=== PATIENT | male | born 1985 | race Two or more races ===

== ENCOUNTER 2019-10-13 22:09 | Emergency (ER) | payer SELFPAY ==
[~2019-10-13] VITALS: Ht 180.3 cm; Wt 74.8 kg
--- NOTE | 2019-10-13 22:15 | NUR ---
ED Nurse Note: Pt JAMARI [address] [place] right calf pain. No swelling or redness to area, no visible injuries. Pt denies injury. Pt states he is unsure as to why the pain started or when the pain began. Pt appears altered with delayed speech, disheveled appearance, drooling. VSS no ss of distress noted. Pt states that he uses methamphetamines and marijuana. Awaiting ERMD at bedside
[2019-10-13 22:18] VITALS: BP 126/86
--- NOTE | 2019-10-13 22:18 | NUR ---
ED Nurse Note: ERMD at bedside
--- NOTE | 2019-10-13 22:26 | Emergency Room Report ---
History of Present Illness General Chief Complaint: Pain Source: Patient Present Illness HPI 34-year-old male history of schizophrenia, methamphetamine abuse presents for right calf pain. He states he has had right calf pain since yesterday. He denies any trauma. Denies any fevers. He denies any nausea vomiting. Patient ambulatory on arrival. Patient used methamphetamine yesterday. Allergies: Coded Allergies: No Known Allergies (Unverified , 10/13/19) COVID-19 Screening Contact w/high risk pt: No Recent Travel to affected area: No Experienced COVID-19 symptoms?: No Patient History Reviewed Nursing Documentation: PMH: Agreed; PSxH: Agreed Nursing Documentation-PMH Past Medical History: No Stated History Review of Systems All Other Systems: negative except mentioned in HPI Physical Exam Vital Signs Date Time Temp Pulse Resp B/P (MAP) Pulse Ox O2 Delivery O2 Flow Rate FiO2 10/13/19 22:06 98.4 88 16 126/86 (99) 99 Room Air Sp02 EP Interpretation: reviewed, normal General Appearance: well appearing, no apparent distress Head: normocephalic, atraumatic Eyes: bilateral eye PERRL, bilateral eye EOMI ENT: hearing grossly normal, moist mucus membranes Neck: full range of motion, supple Respiratory: lungs clear, normal breath sounds, no rhonchi, no respiratory distress, no retraction, no wheezing Cardiovascular #1: normal peripheral pulses, regular rate, rhythm, no murmur Gastrointestinal: non tender, soft, non-distended, no guarding Musculoskeletal: other - Right calf mildly tender, no erythema, no swelling, 2 + pulses in bilateral lower extremities Neurologic: alert, oriented x3, no focal defects Skin: normal color, warm/dry Medical Decision Making ER Course Differential diagnosis included but not limited to muscle strain, myalgia, cramps, DVT, less likely ischemia or infectious process. Ultrasound ordered and showed no evidence of DVT. Exam otherwise benign. Patient given ibuprofen in the ER. Patient otherwise nontoxic no acute distress stable for discharge. Given return precautions. Last Vital Signs Date Time Temp Pulse Resp B/P (MAP) Pulse Ox O2 Delivery O2 Flow Rate FiO2 10/13/19 22:18 98.4 88 16 126/86 99 Room Air Status: improved Disposition: HOME, SELF-CARE Condition: Stable Scripts Ibuprofen* (MOTRIN*) 600 Mg Tablet 600 MG ORAL Q6H PRN for For Pain, #30 TAB 0 Refills Prov: Niranjan Perrin M.D. 10/13/19 Niranjan Perrin M.D. Oct 13, 2019 22:26
--- NOTE | 2019-10-13 23:20 | NUR ---
ED Nurse Note: US at bedside
[2019-10-13] MEDS ORDERED: IBUPROFEN600 M1 ORAL (23:48)
--- NOTE | 2019-10-14 00:07 | Diagnostic Imaging Report ---
EXAM: US Duplex Right Lower Extremity Veins CLINICAL HISTORY: PAIN TECHNIQUE: Real-time duplex ultrasound scan of the right lower extremity veins integrating B-mode two-dimensional vascular structure, Doppler spectral analysis, color flow Doppler imaging and compression. COMPARISON: No relevant prior studies available. FINDINGS: Deep veins: No DVT in the visualized common femoral, femoral, proximal deep femoral or popliteal veins. The veins demonstrate normal color flow, are normally compressible, with normal phasic flow and/or augmentation response. Superficial veins: No thrombus in the visualized great saphenous vein. Soft tissues: No popliteal cyst. IMPRESSION: No DVT.
--- NOTE | 2019-10-14 00:20 | NUR ---
ED Nurse Note: ermd at bedside
[2019-10-14 00:45] VITALS: BP 123/82
--- NOTE | 2019-10-14 00:45 | NUR ---
ER DISCHARGE NOTE: Patient is cleared to be discharged home per ERMD, pt is aox4, on room air, with stable vital signs. pt was given dc and prescription instructions, pt was able to verbalize understanding, pt id band removed. pt is able to ambulate with steady gait. pt took all belongings. pt given adequate clothing, pair of shoes, food and list of shelters.
== END 2019-10-14 00:45 | disposition home or self-care (01) ==
LOC: EDBD 22:09 → EMR 23:38
DX: M79.661 Pain in right lower leg (principal)
CPT/HCPCS: 93971; 99284